=== PATIENT | female | born 1970 | race Caucasian/White ===

== ENCOUNTER 2018-07-10 12:31 | Emergency (ER) | payer BC ==
--- NOTE | 2018-07-10 13:21 | ED Physician Documentation ---
PD HPI ABD PAIN - Stated complaint Stated Complaint: ABD PX - Chief complaint Chief Complaint: Abd Pain - History obtained from History obtained from: Patient - History of Present Illness Timing - onset: Today Timing - duration: Hours (1-2) Timing - details: Abrupt onset Quality: Cramping (like giving type cramps), Aching, Pain Location: All over / everywhere, RLQ, Suprapubic Radiation: Left flank, Right flank Associated symptoms: Nausea, Vomiting. No: Fever, Diarrhea, Dysuria Similar symptoms before: Has not had sx before (kidney stone with lithotripsy in the past but was aching pain with hematuria and not like current pain.) Recently seen: Not recently seen Review of Systems Constitutional: denies: Fever, Myalgias Nose: denies: Rhinorrhea / runny nose, Congestion Throat: denies: Sore throat Respiratory: denies: Cough GI: reports: Abdominal Pain, Nausea, Vomiting. denies: Diarrhea : denies: Dysuria, Frequency, Hematuria, Discharge Skin: denies: Rash Neurologic: denies: Generalized weakness, Focal weakness, Numbness, Near syncope PD PAST MEDICAL HISTORY - Past Medical History Cardiovascular: None Respiratory: None Neuro: None Endocrine/Autoimmune: None [employer] SIGN: Other (endometrial ablation in the past; no current periods. ) - Present Medications Home Medications: Ambulatory Orders Medication Instructions Recorded Confirmed Desvenlafaxine Succinate [Pristiq] 1 tab PO DAILY 07/10/18 07/10/18 Dexamethasone [Decadron] 4 mg PO DAILY #5 tablet 07/10/18 Levothyroxine [Synthroid] 2 tab PO DAILY 07/10/18 07/10/18 Naproxen 375 mg PO BID #20 tablet 07/10/18 Ondansetron HCl [Zofran] 4 mg PO Q6H PRN #20 tablet 07/10/18 Oxycodone HCl/Acetaminophen 1 each PO Q6H PRN #20 tablet 07/10/18 [Percocet 5-325 mg Tablet] Tamsulosin [Flomax] 0.4 mg PO DAILY #5 capsule 07/10/18 - Allergies Allergies/Adverse Reactions: Allergies Allergy/AdvReac Type Severity Reaction Status Date / Time No Known Drug Allergies Allergy Verified 07/10/18 12:43 PD ED PE NORMAL - Vitals Vital signs reviewed: Yes - General General: Alert and oriented X 3, Well developed/nourished, Other (appears in pain) - HEENT HEENT: Pharynx benign - Neck Neck: Supple, no meningeal sign, No adenopathy - Cardiac Cardiac: RRR, No murmur - Respiratory Respiratory: Clear bilaterally - Abdomen Abdomen: Normal bowel sounds, Soft, Non distended, No organomegaly, Other (tender lower abd left and right, more to right. Some general abd tenderness diffusely. Flank tender left. ) - Female Female : Deferred - Rectal Rectal: Deferred - Derm Derm: Normal color, Warm and dry - Extremities Extremities: No tenderness to palpate, Normal ROM s pain, No edema, No calf t enderness / cord - Neuro Neuro: Alert and oriented X 3, No motor deficit, Normal speech Results - Vitals Vitals: Oxygen O2 Source Room air - Labs Labs: Laboratory Tests 07/10/18 07/10/18 07/10/18 13:20 13:52 13:52 WBC 10.3 RBC 4.74 Hgb 15.0 Hct 42.6 MCV 89.9 MCH 31.7 H MCHC 35.2 RDW 12.9 Plt Count 255 MPV 8.3 Neut # (Auto) 7.9 H Lymph # (Auto) 1.5 [place] # (Auto) 0.6 Eos # (Auto) 0.1 Baso # (Auto) 0.1 Absolute Nucleated RBC 0.00 Nucleated RBC % 0.0 Sodium 136 Potassium 3.8 Chloride 101 Carbon Dioxide 24 Anion Gap 11.0 BUN 26 H Creatinine 0.8 Estimated GFR (MDRD) 76 L Glucose 96 Calcium 9.5 Total Bilirubin 0.8 AST 20 ALT 21 Alkaline Phosphatase 41 L Total Protein 7.2 Albumin 4.3 Globulin 2.9 Albumin/Globulin Ratio 1.5 Lipase 32 Urine Color YELLOW Urine Clarity CLEAR Urine pH 6.0 Ur Specific [place] 1.025 Urine Protein TRACE Urine Glucose (UA) NEGATIVE Urine Ketones NEGATIVE Urine Occult Blood LARGE H Urine Nitrite NEGATIVE Urine Bilirubin NEGATIVE Urine Urobilinogen 0.2 (NORMAL) Ur Leukocyte Esterase NEGATIVE Urine RBC TNTC H Urine WBC 0-3 Ur Squamous Epith Cells RARE Squamous Urine Bacteria Rare Ur Microscopic Review INDICATED Urine Culture Comments NOT INDICATED Urine HCG, Qual NEGATIVE - Rads (name of study) pelvic U/S Radiology: Prelim report reviewed (small fibroid. Normal ovaries. No acute process.) abd CT Radiology: Prelim report reviewed (left proximal urteral stone with mod obs truction. Else normal. ) PD MEDICAL DECISION MAKING - ED course Complexity details: reviewed results (U/S did not give cause for pain. CT scan showing proximal left ureteral stone and else normal. So this would be cause of pain. Presume having some ileus general reaction to give the lower abd pain and nausea. ), re-evaluated patient (pelvic U/S normal. Does not explain pain. Improved with meds. since not good answer, will add CT scan.), considered differential (not clear cause based on presentation, with pain diffusely left and right and has some in back. Pain feeling lower pelvis initially and abrupt, so consider ovarian cause at first. ), d/w patient - Sepsis Event Vital Signs: Oxygen O2 Source Room air Departure - Departure Disposition: Home, Self Care Clinical Impression: Ureterolithiasis Abdominal pain Qualifiers: Abdominal location: lower abdomen, unspecified Qualified Code(s): R10.30 - Lower abdominal pain, unspecified Condition: Stable Record reviewed to determine appropriate education?: Yes Instructions: Abdominal Pain, ED Stone Renal W Colic Prescriptions: Dexamethasone [Decadron] 4 mg PO DAILY #5 tablet Naproxen 375 mg PO BID #20 tablet Ondansetron HCl [Zofran] 4 mg PO Q6H PRN #20 tablet PRN Reason: Nausea / Vomiting Oxycodone HCl/Acetaminophen [Percocet 5-325 mg Tablet] 1 each PO Q6H PRN #20 tablet PRN Reason: Pain Tamsulosin [Flomax] 0.4 mg PO DAILY #5 capsule Comments: TMs loosen tries to reduce ureter spasms and Decadron steroid reduces inflammation of the ureter. These are to try to promote passage of the stone. Naproxen anti-inflammatory for pain twice daily and add Tylenol or oxycodone if needed for pain. Ondansetron if needed for nausea. Follow-up with urology when back home, call Thursday for an appointment. Return to the ER if intractable pain despite the above medicines. Discharge Date/Time: 07/10/18 18:50
[2018-07-10] MEDS ORDERED: ONDANSETRON 4 MG/2 ML VIAL IVP STA (13:43)
[2018-07-10] MEDS ORDERED: SODIUM CHLORIDE 0.9% 1,000 ML IV ONE (13:43)
[2018-07-10] MEDS ORDERED: MORPHINE 10 MG/ML VIAL IVP STA ×2 (13:44→16:15)
[2018-07-10] MEDS ORDERED: KETOROLAC 15 MG/ML VIAL IVP STA (13:49)
[2018-07-10 13:55] LABS: BASOPHILS # (AUTO) 0.1 10^3/uL (0.0-0.1); BASOPHILS % (AUTO) 1.3 %; EOSINOPHILS # (AUTO) 0.1 10^3/uL (0.0-0.7); EOSINOPHILS % (AUTO) 1.4 %; LYMPHOCYTES # (AUTO) 1.5 10^3/uL (1.5-3.5); LYMPHOCYTES % (AUTO) 14.7 %; MEAN CORPUSCULAR HEMOGLOBIN 31.7 pg (27.0-31.0); MEAN CORPUSCULAR HGB CONC 35.2 g/dL (32.0-36.0); MEAN CORPUSCULAR VOLUME 89.9 fL (81.0-99.0); MEAN PLATELET VOLUME 8.3 fL (7.9-10.8); MONOCYTES # (AUTO) 0.6 10^3/uL (0.0-1.0); MONOCYTES % (AUTO) 5.6 %; NEUTROPHILS # (AUTO) 7.9 10^3/uL (1.5-6.6); PLT - PLATELET COUNT 255 10^3/uL (130-450); RED BLOOD COUNT 4.74 10^6/uL (4.20-5.40); RED CELL DISTRIBUTION WIDTH 12.9 % (12.0-15.0); WHITE BLOOD COUNT 10.3 x10^3/uL (4.8-10.8)
[2018-07-10 14:01] LABS: BILIRUBIN,URINE NEGATIVE (NEGATIVE); GLUCOSE, URINE (UA) NEGATIVE (NEGATIVE); KETONES,URINE (UA) NEGATIVE (NEGATIVE); LEUKOCYTE ESTERASE, URINE NEGATIVE (NEGATIVE); NITRITE,URINE NEGATIVE (NEGATIVE); OCCULT BLOOD,URINE LARGE (NEGATIVE); PROTEIN,URINE TRACE mg/dL (NEGATIVE); UROBILINOGEN,URINE 0.2 (NORMAL) E.U./dL (NORMAL)
[2018-07-10 14:02] LABS: CLARITY,URINE CLEAR (CLEAR)
[2018-07-10 14:03] LABS: HCG UR QUAL NEGATIVE
[2018-07-10 14:12] LABS: BACTERIA,URINE Rare /HPF (None Seen); RBC,URINE TNTC /HPF (0-5); SQUAMOUS EPITHELIAL CELL,UR RARE Squamous (<= Few)
[2018-07-10 14:17] LABS: ALBUMIN 4.3 g/dL (3.2-5.5); ALBUMIN/GLOBULIN RATIO 1.5 (1.0-2.2); BILIRUBIN,TOTAL 0.8 mg/dL (0.2-1.0); CALCIUM 9.5 mg/dL (8.5-10.3); CREATININE 0.8 mg/dL (0.4-1.0); TOTAL PROTEIN 7.2 g/dL (6.7-8.2)
--- NOTE | 2018-07-10 16:00 | Ultrasound Report ---
Reason: abrupt lower abd pain today 10 am Procedure Date: 07/10/2018 Accession Number: [id number] / [id number] Procedure: US - Pelvic w/Transvag+Doppler Ltd CPT Code: FULL RESULT: EXAM: PELVIC ULTRASOUND WITH DOPPLERS EXAM DATE: 07/10/2018 03:39 PM. CLINICAL HISTORY: Abrupt onset bilateral pelvic pain today at 10 am. History of uterine ablation in 2013. COMPARISON: None. TECHNIQUE: Realtime transabdominal pelvic scan performed to identify the uterus and adnexa and as an overview of other pelvic structures, followed by transvaginal scan to provide greater detail of the uterus and adnexa, with static image documentation. Additional Doppler spectral analysis performed due to pelvic pain. FINDINGS: Uterus: Anteverted position. 7.8 x 3.7 x 4.6 cm, volume 69 cc. Mildly heterogeneous myometrium with a solitary right fundal transmural fibroid measuring 4.5 x 3.7 x 4.5 cm. Endometrium: 3 mm. Normal. Cervix: Multiple small nabothian cysts. Clustered calcifications measuring 2.3 x 1.0 x 1.3 cm overall possibly related to prior instrumentation. Right Ovary: 2.0 x 1.2 x 1.5 cm, volume 1.9 cc. Normal echotexture. Arterial and venous blood flow are present. Left Ovary: 2.0 x 1.1 x 1.2 cm, volume 1.4 cc. Arterial and venous blood flow are present. Free Fluid: None. Other: None. IMPRESSION: 1. Solitary transmural right fundal uterine fibroid. 2. Unremarkable sonographic appearance of the ovaries. 3. Arterial and venous blood flow are present in the ovaries bilaterally. RADIA
--- NOTE | 2018-07-10 17:00 | CT Report ---
Reason: lower abd pain, abrupt onset today Procedure Date: 07/10/2018 Accession Number: [id number] / [id number] Procedure: CT - KUB CPT Code: FULL RESULT: EXAM: CT ABDOMEN AND PELVIS (CT KUB) EXAM DATE: 07/10/2018 04:20 PM. CLINICAL HISTORY: Lower abdominal pain, abrupt onset today. History of renal stones. COMPARISONS: Pelvis (non-obstetrical) with transvaginal 07/10/2018 2:42 PM. TECHNIQUE: Routine axial helical CT imaging was performed through the abdomen and pelvis without IV contrast. Reconstructions: Coronal and sagittal. In accordance with CT protocol optimization, one or more of the following dose reduction techniques were utilized for this exam: automated exposure control, adjustment of mA and/or KV based on patient size, or use of iterative reconstructive technique. FINDINGS: Lung bases: Mild dependent atelectasis posteriorly in the bilateral lower lobes. Liver: 1.6 cm low density liver mass with Hounsfield units most suggestive of a liver cyst seen superiorly in the right hepatic lobe. Gallbladder: Unremarkable. Bile ducts: Unremarkable. Pancreas: Unremarkable. Spleen: Unremarkable. Adrenals: Unremarkable. Kidneys: Multiple bilateral renal calculi which are nonobstructing, with the largest in the right kidney measuring 7 mm at the lower pole right kidney and the largest in the left kidney at the lower pole measuring 7 mm. There is moderate left hydronephrosis with dilated extrarenal pelvis caused by a ureteropelvic junction calculus measuring 7 x 6 x 7 mm. Bowel: No acute bowel findings are seen. No evidence for bowel obstruction. Trace free fluid suspected in the posterior cul-de-sac, probably physiologic. No free air. Pelvis: The bladder is unremarkable. No bladder calculi. Posterior body and fundus subserosal fibroid measuring 4.6 x 2 cm. Vascular structures: No acute findings. Bones: No acute bone findings. Severe degenerative disease L5-S1. IMPRESSION: 1. Moderate left hydronephrosis being caused by a ureteropelvic junction calculus measuring 7 x 6 x 7 mm. Multiple bilateral nonobstructing renal calculi. 2. Uterine fibroid. Trace free fluid in the posterior cul-de-sac, probably physiologic. 3. See above. RADIA
[2018-07-10 17:16] VITALS: BP 113/87
[2018-07-10] MEDS ORDERED: DEXAMETHASONE 10 MG/ML VIAL IVP STA (17:58)
[2018-07-10] MEDS ORDERED: ONDANSETRON ODT 4 MG Prepack 2 TL PRN (17:58)
[2018-07-10] MEDS ORDERED: oxyCODONE/ACET 5/325 Prepack 4 PO STA (17:58)
== END 2018-07-10 18:50 | disposition home or self-care (01) ==
LOC: ED 12:31
DX: N13.2 Hydronephrosis with renal and ureteral calculous obstruction (principal); D25.9 Leiomyoma of uterus, unspecified
CPT/HCPCS: 36415; 74176; 76830; 76856; 80053; 81001; 81003; 81025; 83690; 85025; 87086; 93976; 96361; 96374; 96375; 96376; 99284